=== PATIENT | male | born 1960 | race Caucasian/White ===

== ENCOUNTER → 2024-07-29 09:56 | Outpatient (REF) | payer BC, SELFPAY | LOC: DHVS 09:56 | PROVIDERS: ATTENDING PHYSICIAN Surgery Vascular Surgery; FAMILY PHYSICIAN Family Medicine | DX: I73.9 Peripheral vascular disease, unspecified (principal) | CPT/HCPCS: 93922; 93925 ==

== ENCOUNTER 2025-01-22 06:20 | Day surgery (SDC) | payer MEDICARE, BC, SELFPAY ==
[2025-01-22 07:26] LABS: Glucose - Point of Care 109 mg/dl (70-99)
== END 2025-01-22 09:16 | disposition home or self-care (01) ==
LOC: GI 06:20
PROVIDERS: ATTENDING PHYSICIAN Specialist
DX: Z12.11 Encounter for screening for malignant neoplasm of colon (principal); D12.2 Benign neoplasm of ascending colon; R19.7 Diarrhea, unspecified; Z86.0101 Personal history of adenomatous and serrated colon polyps
CPT/HCPCS: 45380; 88305; 82962

== ENCOUNTER → 2025-09-03 14:17 | Outpatient (REF) | payer MEDICARE, BC, SELFPAY | LOC: RAD 14:17 | PROVIDERS: ATTENDING PHYSICIAN Surgery Vascular Surgery; FAMILY PHYSICIAN Family Medicine | DX: I73.9 Peripheral vascular disease, unspecified (principal) | CPT/HCPCS: 93922; 93925 ==